=== PATIENT | female | born 1980 | race African-American/Black ===

== ENCOUNTER 2018-05-05 15:32 | Inpatient (IN) | payer OTHER ==
[~2018-05-05] VITALS: Ht 162.6 cm; Wt 68.4 kg
--- NOTE | 2018-05-05 18:20 | NUR ---
Pt arrived via [facility] transport by ambulance. Came from [facility] ER. Received report from NICHOLE Delaney in ER. Pt stable. No complaints. Not in distress. IV intact. Skin intact. BP high. Informed Dr. Raymundo. He states he will order new BP meds for patient.
[2018-05-05 18:37] VITALS: BP 225/116; PULSE 108; RESP 24
[2018-05-05 18:53] VITALS: PULSE 94
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
[2018-05-05] MEDS ORDERED: NACL 0.9% 3 ML SYG IV SCH (19:30)
[2018-05-05] MEDS ORDERED: ONDANSETRON 4 MG INJ IV PRN (19:30)
[2018-05-05] MEDS ORDERED: POTASSIUM CHLORIDE 20 MEQ POWDER FOR ORAL SOLN PO ONE (19:30)
[2018-05-05] MEDS ORDERED: LABETALOL 100 MG TAB ONE (19:51)
[2018-05-05] MEDS ORDERED: ISOSORBIDE DINITRATE 10 MG TAB ONE (19:51)
[2018-05-05 20:00] VITALS: PULSE 95
[2018-05-05 20:10] VITALS: BP 212/110; PULSE 97; RESP 19
[2018-05-05] MEDS: ACETAMINOPHEN 325 MG TAB PO PRN (20:15)
[2018-05-05] MEDS: ISOSORBIDE DINITRATE 10 MG TAB PO SCH (20:18)
[2018-05-05] MEDS: LISINOPRIL 20 MG TAB PO SCH (20:18)
[2018-05-05] MEDS: NICOTINE (14 MG/24 HR) PATCH TRANSDERM SCH (20:19)
[2018-05-05] MEDS: LABETALOL 200 MG TAB PO SCH (20:22)
[2018-05-06] VITALS (10 sets, daily range): BP systolic 123–189; BP diastolic 70–100; PULSE 84–115; RESP 18
[2018-05-06] MEDS ORDERED: ZOLPIDEM 5 MG TAB PO ONE (01:18)
[2018-05-06] MEDS: ACETAMINOPHEN 325 MG TAB PO PRN (01:23)
[2018-05-06] MEDS ORDERED: hydrALAzine 20 MG INJ IV PRN (03:00)
[2018-05-06] MEDS ORDERED: IBUPROFEN 400 MG TAB PO ONE (05:35)
--- NOTE | 2018-05-06 06:31 | NUR ---
Pt AOx4, ambulatory & steady. VS stable. BP still on high side. PRN Hydralazine ordered and given. Sinus rhythm on monitor No complaints of chest pain/discomfort overnight Complained of headache, given Tylenol PRN and one time dose of Ibuprofen Hourly Rounding done Needs attended
[2018-05-06] MEDS: NICOTINE (14 MG/24 HR) PATCH TRANSDERM SCH (08:07)
[2018-05-06] MEDS: ISOSORBIDE DINITRATE 10 MG TAB PO SCH ×2 (08:08→13:21)
[2018-05-06] MEDS: LABETALOL 200 MG TAB PO SCH (08:08)
[2018-05-06] MEDS: LISINOPRIL 20 MG TAB PO SCH (08:09)
[2018-05-06] MEDS ORDERED: AMLODIPINE 10 MG TAB PO SCH (09:00)
[2018-05-06] MEDS ORDERED: AMLO-147 PO (10:33)
--- NOTE | 2018-05-06 10:35 | PDOCDIS ---
Discharge Instructions DIAGNOSIS Discharge Diagnosis Hypertension CONDITION [id number] Patient Condition: Sarhi0c Good HOME CARE INSTRUCTIONS: [id number] Special Diet: Whicu2e Less than 2g sodium per day ACTIVITY: [id number] Activity Restrictions: [id number] No Restrictions FOLLOW UP/APPOINTMENTS Follow-up Plan 1. You have one new medication prescribed, amlodipine, (Norvasc) for high blood pressure. 2. You should see your primary care doctor in 1-2 weeks. 3. Eat less than 2 g of sodium per day. Exercise 30 minutes per day 3 days per week. 4. For pressure-like chest pain that does not go away with rest, return to the emergency room. SUSAN HALL MD May 06, 2018 10:35
--- NOTE | 2018-05-06 13:31 | NUR ---
DISCHARGE pt is alert and orientedx4, room air, stable discharge instructions given pt verbalized understanding of discharge instructions prescription given to pt as well all belongings kept with the pt iv d/c tele box off
--- NOTE | 2018-05-06 14:50 | NUR ---
SW: ATTEMPTED VISIT SW attempted to meet with this patient today for cocaine use, after receiving the order today. However, patient has been d/c'd already. SW remains available as needed.
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
== END 2018-05-06 13:30 | disposition home or self-care (01) | DRG 897 ==
LOC: 6WM 18:07
PROVIDERS: ADMIT Internal Medicine; ATTEND Internal Medicine
DX: F14.129 Cocaine abuse with intoxication, unspecified (principal); I10 Essential (primary) hypertension; F15.90 Other stimulant use, unspecified, uncomplicated; R07.9 Chest pain, unspecified; Z72.89 Other problems related to lifestyle; Z72.0 Tobacco use
CPT/HCPCS: 80053; 80061; 83036; 83735; 84100; 84443; 84484; 85025; J0360; J2405